=== PATIENT | male | born 1970 | race Caucasian/White ===

== ENCOUNTER 2019-10-28 14:46 | Emergency (ER) | payer OTHER, SELFPAY ==
[2019-10-28 14:47] VITALS: BP 133/85; PULSE 99; RESP 16; TEMP 36.9; O2SAT 97; BMI 31.2
--- NOTE | 2019-10-28 14:51 | EKG12_ITS ---
Test Reason : CP Blood Pressure : / mmHG Vent. Rate : 096 BPM Atrial Rate : 096 BPM P-R Int : 160 ms QRS Dur : 092 ms QT Int : 366 ms P-R-T Axes : 044 036 006 degrees QTc Int : 462 ms Normal sinus rhythm Normal ECG Confirmed by RACHAEL PADRON, BECKY ([id number]), editor city REYES NICHOLS ([id number]) on 10/29/2019 10:18:23 AM Referred By: TONY Confirmed By:ALDO CANO MD
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
[2019-10-28 15:06] LABS: Absolute Lymphocyte Count 1.94 X10^3/uL (0.83-4.51); Absolute Neutrophil Count 4.5 X10^3/uL (2.0-7.7); Basophil# 0.05 X10^3/uL; Basophil% 0.7 % (0-1); Eosinophil# 0.11 X10^3/uL; Eosinophils% 1.5 % (0-5); Hemoglobin 14.6 g/dL (13.0-16.5); Lymphocyte # 1.94 X10^3/ul (4.0); Lymphocyte % 27.2 % (19-41); Mean Corpuscular Hgb 30.2 pg (27.0-32.0); Mean Corpuscular Volume 88.8 fL (80-94); Mean Platelet Vol. 9.7 fl (6.2-12.0); Monocyte# 0.51 X10^3/uL; Monocyte% 7.1 % (0-10); NRBC Flagged by Analyzer 0 % (0-5); Neutrophil # 4.49 X10^3/uL (2.7-7.7); Neutrophil % 62.9 % (47-70); Platelet Count 254 K/mm3 (150-450); RBC Distribution Width CV 12.2 % (11.6-14.6); RBC Distribution Width SD 39.4 fl (35.1-43.9); Red Blood Count 4.84 M/mm3 (4.6-6.2); White Blood Count 7.1 K/mm3 (4.4-11.0)
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
[2019-10-28 15:27] LABS: Anion Gap 7 (5-15); BUN 24 mg/dL (7-18); BUN/Creat Ratio 16.7 RATIO (10-20); Calcium,Total 9.1 mg/dL (8.5-10.1); Chloride 109 mmol/L (98-107); Creatinine, Serum 1.44 mg/dL (0.70-1.30); EST Glomerular Filtration Rate 55 mL/min (>60); Est Glom Filt Rate - Afr Amer 67 mL/min (>60); Estimated Creatinine Clearance 63.37 ml/min; Glucose 187 mg/dL (74-106); Potassium 3.5 mmol/L (3.5-5.1); Sodium Level 140 mmol/L (136-145); Thyroid Stim Hormone (TSH) 2.17 uIU/mL (0.358-3.74)
--- NOTE | 2019-10-28 15:44 | DCINST.ED_ITS ---
ED Disposition - Plan for ED Patient: Disposition: Home or Assisted Living Instructions: Atrial Fibrillation Prescriptions: Metoprolol Succinate 25 mg PO DAILY #30 tab.er.24h Prescription Printed Referrals: Jonah Randle MD [STAFF PHYSICIAN] - As soon as possible Additional Instructions: Start the metoprolol 1 pill/day. Watch your blood pressure with this and your heart rate. Call and follow-up with a local employee relations assistant. Return if feeling worse.
[2019-10-28 15:55] VITALS: BP 118/67; PULSE 85; RESP 16; O2SAT 96
== END 2019-10-28 16:05 | disposition home or self-care (01) ==
PROVIDERS: Emergency Provider Emergency Medicine
DX: I48.91 Unspecified atrial fibrillation (principal)
CPT/HCPCS: 71045; 80048; 84443; 84484; 85025; 93005; 99285

== ENCOUNTER → 2019-11-25 08:02 | Outpatient (CLI) | payer OTHER, SELFPAY ==
[2019-11-17 15:14] VITALS: BMI 31.2
--- NOTE | 2019-11-25 08:05 | ECHOD_ITS ---
Reason For Study: PALPITATIONS Procedure This was a 2D Doppler, Color Flow transthoracic echocardiogram. Exam performed in department. Left Ventricle Normal LV size. The estimated ejection fraction is 65 %. No evidence for diastolic dysfunction. No regional wall motion abnormalities noted. Right Ventricle Normal RV size. Normal systolic function. Atria Normal left atrium. Normal right atrium. No doppler evidence for ASD. Mitral Valve There is no mitral valve stenosis. No mitral valve insufficiency. Tricuspid Valve There is no tricuspid stenosis. Trivial tricuspid valve insufficiency. Pulmonary artery systolic pressure is 30-35 mmHg. Aortic Valve Trisinus/trileaflet aortic valve. There is no aortic stenosis. No aortic valve insufficiency. Pulmonic Valve There is no pulmonic valvular stenosis. Trivial pulmonic valve insufficiency. Great Vessels Normal aortic root. Pericardium/Pleural No pericardial effusion. MMode/2D Measurements & Calculations LVIDd: 4.2 cm IVSd: 0.93 cm Ao root diam: 3.3 cm LVIDs: 3.0 cm LVPWd: 0.91 cm RVDd: 4.1 cm FS: 29.7 % LAV(MOD-bp): 57.4 ml LVAd ap4: 36.9 cm2 SV(MOD-sp4): 83.0 ml LAV(MOD-bp) Indexed: 27.6 ml/m2 EDV(MOD-sp4): 129.8 ml LAV(MOD-sp2): 58.0 ml EDV(sp4-el): 133.3 ml LAV(MOD-sp4): 54.6 ml LVAs ap4: 18.9 cm2 ESV(MOD-sp4): 46.8 ml ESV(sp4-el): 45.0 ml EF(MOD-sp4): 64.0 % EF(sp4-el): 66.2 % SV(sp4-el): 88.3 ml LA A4 area: 19.0 cm2 LA dimension(2D): 3.6 cm RA A4 area: 15.9 cm2 Time Measurements MV dec time: 0.20 sec Doppler Measurements & Calculations MV E max guido: 73.3 cm/sec Lat Peak E' Guido: 11.1 cm/sec Med Peak E' Guido: 10.2 cm/sec MV A max guido: 80.1 cm/sec E/E' lat: 6.6 E/E' med: 7.2 MV E/A: 0.92 Ao V2 max: 144.6 cm/sec LV V1 max: 137.8 cm/sec PA V2 max: 141.6 cm/sec Ao max P.4 mmHg LV V1 max P.6 mmHg PI end-d guido: 78.6 cm/sec TR max guido: 269.1 cm/sec TR max P.0 mmHg PI dec slope: 217.2 cm/sec2 Interpretation Summary No evidence for diastolic dysfunction. Trivial tricuspid valve insufficiency. Pulmonary artery systolic pressure is 30-35 mmHg. The estimated ejection fraction is 65 %. Ordering Physician: Jonah Randle Referring Physician: Jonah Randle Performed By: Della Lozada RDCS
== END ==
PROVIDERS: Referring Provider Specialist; Visit Provider Specialist
DX: R00.2 Palpitations (principal)
CPT/HCPCS: 93306

== ENCOUNTER 2024-01-06 07:36 | Observation (INO) | payer OTHER, SELFPAY ==
[2024-01-06] VITALS (14 sets, daily range): BP systolic 90–158; BP diastolic 65–127; PULSE 62–162; RESP 13–20; TEMP 35.6–36.8; O2SAT 95–100; BMI 28.7; BMI 28.0
--- NOTE | 2024-01-06 08:08 | EKG12_ITS ---
Test Reason : CP/A-FIB Blood Pressure : / mmHG Vent. Rate : 149 BPM Atrial Rate : 000 BPM P-R Int : 000 ms QRS Dur : 082 ms QT Int : 318 ms P-R-T Axes : 000 037 014 degrees QTc Int : 500 ms Critical Test Result: High HR Atrial fibrillation with rapid ventricular response Cannot rule out Inferior infarct , age undetermined Abnormal ECG When compared with ECG of 28-OCT-2019 14:51, Confirmed by ISATU PADRON, DUY ([id number]), editor book KAILEY BAZAN ([id number]) on 01/15/2024 9:21:15 AM Referred By: DEBBIE Confirmed By:DUY LUNSFORD MD
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
[2024-01-06] MEDS: dilTIAZem 25 MG/5 ML Vial 10 MG IV BOLUS (08:21)
--- NOTE | 2024-01-06 08:28 | NURSING ---
After cardizem given, pt becomes faint, ryan down, code called, pt unconcious w/ pulse, came back to conciousness in approx 30 sec or less.
[2024-01-06] MEDS: Ondansetron 4 MG/2 ML Vial IV (08:32)
[2024-01-06 08:42] LABS: Absolute Lymphocyte Count 1.87 X10^3/uL (0.83-4.51); Absolute Neutrophil Count 3.8 X10^3/uL (2.0-7.7); Basophil# 0.04 X10^3/uL; Basophil% 0.6 % (0-1); Eosinophil# 0.08 X10^3/uL; Eosinophils% 1.1 % (0-5); Hematocrit 46.3 % (40-54); Hemoglobin 15.7 g/dL (13.0-16.5); Lymphocyte # 1.87 X10^3/ul (0.83-4.51); Lymphocyte % 26.6 % (19-41); Mean Corp Hgb Conc 33.9 g/dL (32-36); Mean Corpuscular Hgb 30.4 pg (27.0-32.0); Mean Corpuscular Volume 89.7 fL (80-94); Mean Platelet Vol. 10.1 fl (6.2-12.0); Monocyte# 1.25 X10^3/uL; Monocyte% 17.8 % (0-10); NRBC Flagged by Analyzer 0 % (0-5); Neutrophil # 3.76 X10^3/uL (2.7-7.7); Neutrophil % 53.6 % (47-70); Platelet Count 279 K/mm3 (150-450); RBC Distribution Width CV 12.4 % (11.6-14.6); RBC Distribution Width SD 41.1 fl (35.1-43.9); Red Blood Count 5.16 M/mm3 (4.6-6.2)
--- NOTE | 2024-01-06 08:45 | RAD_ITS ---
INDICATION: chest pain EXAMINATION/TECHNIQUE: X-RAY - XR Chest 1 View COMPARISON: Prior study dated: 10/28/2019 FINDINGS: LINES/DEVICES: None. LUNGS: No consolidation, edema or effusion. No pneumothorax. MEDIASTINUM AND CARDIOVASCULAR STRUCTURES: Cardiac silhouette not enlarged. Central airways and mediastinal contour are unremarkable. BONES AND SOFT TISSUES: Unremarkable. RAD/Chest 1 View (Portable) IMPRESSION: No radiographic evidence of acute cardiopulmonary disease. Electronically Signed: Ross Velazquez MD at 9:09 EST ,
--- NOTE | 2024-01-06 08:46 | EKG12_ITS ---
Test Reason : Blood Pressure : / mmHG Vent. Rate : 065 BPM Atrial Rate : 065 BPM P-R Int : 170 ms QRS Dur : 088 ms QT Int : 408 ms P-R-T Axes : 051 056 031 degrees QTc Int : 424 ms Normal sinus rhythm Normal ECG When compared with ECG of 06-JAN-2024 07:57, MANUAL COMPARISON REQUIRED, DATA IS UNCONFIRMED Confirmed by Lester Yip ([id number]), editor in chief DEEP WEBB ([id number]) on 01/07/2024 1:33:36 PM Referred By: MEG Confirmed By:Lester Yip
[2024-01-06 09:02] LABS: Anion Gap 3 (5-15); BUN 19 mg/dL (7-18); BUN/Creat Ratio 17.8 RATIO (10-20); Calcium,Total 9.3 mg/dL (8.5-10.1); Chloride 105 mmol/L (98-107); Creatinine, Serum 1.07 mg/dL (0.70-1.30); EST Glomerular Filtration Rate 77 mL/min (>60); Est Glom Filt Rate - Afr Amer 93 mL/min (>60); Glucose 103 mg/dL (74-106); Magnesium 2.3 mg/dL (1.6-2.6); Potassium 3.8 mmol/L (3.5-5.1); Sodium Level 137 mmol/L (136-145); Thyroid Stim Hormone (TSH) 1.78 uIU/mL (0.358-3.74); Troponin-I HS (w/2H Reflex) 7 pg/mL (3.0-78.0)
--- NOTE | 2024-01-06 09:36 | CT_ITS ---
INDICATION: headache after syncope EXAMINATION: CT BRAIN - CT Head or Brain W/O Contrast Injection TECHNIQUE: Multiple axial images were obtained of the head without intravenous contrast. A radiation dose optimization technique was used for this scan. IV Contrast dosage and agent: None. RADIATION DOSAGE (If Supplied By Facility): CTDIvol = ( 44.99 ) mGy, DLP = ( 796.11 ) mGycm COMPARISON: No relevant prior comparison study available FINDINGS: BRAIN PARENCHYMA: No intra- or extra-axial hemorrhage. No evidence of acute infarct. No intracranial mass or mass effect. There is preservation of the conrad/white matter interface. Posterior fossa structures are unremarkable. CSF SPACES: Appropriate for age. No hydrocephalus. Basal cisterns are patent. CALVARIUM, SKULL BASE, PARANASAL SINUSES AND MASTOID AIR CELLS: Mild mucosal thickening of the sphenoid and right maxillary sinus. Partial occlusion of the right ostiomeatal complex. No discrete lytic or blastic abnormalities. ORBITS: Both globes, extraocular muscles, optic nerves and retrobulbar fat appear unremarkable. CT/Brain/Head without Contrast IMPRESSION: No acute intracranial process. Electronically Signed: Ross Velazquez MD at 10:22 EST ,
[2024-01-06] MEDS: Metoprolol Tartrate 25 MG Tablet PO ×2 (09:42→10:28)
[2024-01-06] MEDS: Metoclopramide 10 MG/2 ML Vial IV (09:52)
[2024-01-06 10:35] LABS: Reflex Troponin-HS? (from REC) Y
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
[2024-01-06 11:12] LABS: Troponin-I HS 6 pg/mL (3.0-78.0)
--- NOTE | 2024-01-06 11:45 | ECHOD_ITS ---
Reason For Study: Afib w/RVR Procedure This was a 2D Doppler, Color Flow transthoracic echocardiogram. Exam performed portable in patient room. Left Ventricle Normal LV size. The left ventricular ejection fraction is 65 %. Normal diastololic function. Right Ventricle Normal right ventricle. Atria The left and right atria are normal. Mitral Valve Mild (1+) mitral valve insufficiency. Tricuspid Valve Mild tricuspid valve insufficiency. Normal pulmonary artery pressure. Aortic Valve Trisinus/trileaflet aortic valve. Pulmonic Valve Mild (1+) pulmonic valve insufficiency. Great Vessels Normal sized aortic root. Pericardium/Pleural No pericardial effusion. MMode/2D Measurements & Calculations LVIDd: 4.5 cm IVSd: 1.1 cm Ao root diam: 3.2 cm LVIDs: 3.1 cm LVPWd: 0.99 cm LA dimension: 3.8 cm RVDd: 4.7 cm FS: 30.0 % LAV(MOD-bp): 58.9 ml LVAd ap4: 32.0 cm2 SV(MOD-sp4): 58.7 ml LAV(MOD-bp) Indexed: 27.6 ml/m2 LVLd ap4: 8.6 cm LAV(MOD-sp2): 57.6 ml EDV(MOD-sp4): 95.8 ml LAV(MOD-sp4): 56.4 ml EDV(sp4-el): 101.0 ml LVAs ap4: 17.0 cm2 LVLs ap4: 7.0 cm ESV(MOD-sp4): 37.1 ml ESV(sp4-el): 34.8 ml EF(MOD-sp4): 61.3 % EF(sp4-el): 65.5 % SV(sp4-el): 66.2 ml LA A4 area: 20.6 cm2 RA A4 area: 20.6 cm2 TAPSE: 2.3 cm Time Measurements MV dec time: 0.24 sec Doppler Measurements & Calculations MV E max guido: 41.6 cm/sec Lat Peak E' Guido: 9.3 cm/sec Med Peak E' Guido: 7.7 cm/sec MV A max guido: 49.0 cm/sec E/E' lat: 4.5 E/E' med: 5.4 MV E/A: 0.85 MV V2 max: 76.5 cm/sec MV P1/2t max guido: 70.1 cm/sec Ao V2 max: 110.0 cm/sec MV max P.3 mmHg MV P1/2t: 102.9 msec Ao max P.8 mmHg MV V2 mean: 38.7 cm/sec MV dec slope: 199.7 cm/sec2 Ao V2 mean: 80.2 cm/sec MV mean P.73 mmHg Ao mean P.9 mmHg MV V2 VTI: 24.2 cm MVA(P1/2t): 2.1 cm2 Ao V2 VTI: 24.4 cm AV (velocity ratio): 0.88 LV V1 max: 102.6 cm/sec MR max guido: 449.9 cm/sec PA V2 max: 83.2 cm/sec LV V1 max P.2 mmHg MR max P.0 mmHg LV V1 mean P.4 mmHg LV V1 mean: 71.6 cm/sec LV V1 VTI: 21.4 cm TR max guido: 229.4 cm/sec TR max P.1 mmHg ECHO/Echo Complete Interpretation Summary The left ventricular ejection fraction is 65 %. Mild (1+) mitral valve insufficiency. Mild tricuspid valve insufficiency. Mild (1+) pulmonic valve insufficiency. Ordering Physician: Lawrence Bright Performed By: Brett Jacobs RCS
[2024-01-06] MEDS: Metoprolol Tartrate 50 MG Tablet PO (12:05)
--- NOTE | 2024-01-06 13:07 | EKG12_ITS ---
Test Reason : UNRESPONSIVE EPISODE Blood Pressure : / mmHG Vent. Rate : 097 BPM Atrial Rate : 000 BPM P-R Int : 000 ms QRS Dur : 086 ms QT Int : 356 ms P-R-T Axes : 000 055 044 degrees QTc Int : 452 ms Atrial fibrillation Nonspecific ST abnormality Abnormal ECG No previous ECGs available Confirmed by ISATU PADRON, DUY ([id number]), features editor KAILEY BAZAN ([id number]) on 01/15/2024 9:21:32 AM Referred By: DEBBIE Confirmed By:DUY LUNSFORD MD
--- NOTE | 2024-01-06 15:21 | NURSING ---
Echo in progress
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
[2024-01-06] MEDS: APIXABAN 5 MG TABLET PO (17:47)
[2024-01-07 04:00] VITALS: BP 104/73; PULSE 71; RESP 18; TEMP 36.6; O2SAT 98
[2024-01-07 08:07] LABS: Hematocrit 42.9 % (40-54); Hemoglobin 14.5 g/dL (13.0-16.5); Mean Corp Hgb Conc 33.8 g/dL (32-36); Mean Corpuscular Hgb 30.3 pg (27.0-32.0); Mean Corpuscular Volume 89.6 fL (80-94); Mean Platelet Vol. 10.1 fl (6.2-12.0); Platelet Count 263 K/mm3 (150-450); RBC Distribution Width CV 12.7 % (11.6-14.6); RBC Distribution Width SD 42.2 fl (35.1-43.9); Red Blood Count 4.79 M/mm3 (4.6-6.2); White Blood Count 6.2 K/mm3 (4.4-11.0)
[2024-01-07 08:29] VITALS: BP 115/66; PULSE 68; RESP 18; TEMP 36.6; O2SAT 98
[2024-01-07 08:31] VITALS: PULSE 68
[2024-01-07] MEDS: Metoprolol Tartrate 50 MG Tablet PO (08:31)
[2024-01-07] MEDS: APIXABAN 5 MG TABLET PO (08:32)
[2024-01-07 08:35] LABS: Anion Gap 5 (5-15); BUN 22 mg/dL (7-18); BUN/Creat Ratio 22.1 RATIO (10-20); Calcium,Total 8.8 mg/dL (8.5-10.1); Chloride 107 mmol/L (98-107); EST Glomerular Filtration Rate 83 mL/min (>60); Est Glom Filt Rate - Afr Amer 100 mL/min (>60); Estimated Creatinine Clearance 97.48 ml/min; Glucose 97 mg/dL (74-106); Sodium Level 138 mmol/L (136-145)
--- NOTE | 2024-01-07 11:39 | PN.CARD_ITS ---
Subjective Subjective Patient reports he been up in the halls with regular activity levels without any lightheaded or dizzy spells. He reports only time he gets lightheaded is when he knows he is in atrial fibrillation. He has had no recurrence. Telemetry shows sinus rhythm at 80 bpm. His echocardiogram revealed LV ejection fraction of 65% mild 1+ mitral regurgitation otherwise was unremarkable.. Objective Data Vital Signs: Vital Signs Temp Pulse Resp BP Pulse Ox O2 Del Method O2 Flow Rate 97.9 F 68 18 115/66 98 Room Air 2 01/07/24 08:29 01/07/24 08:31 01/07/24 08:29 01/07/24 08:29 01/07/24 08:29 01/07/24 08:53 01/06/24 12:01 Oxygen Flow Rate (L/min) 2 Oxygen Delivery Method Room Air Weight: 200 lb 12.8 oz Body Mass Index (BMI) 28.0 Intake & Output: Intake and Output for Last 24 Hours 01/05/24 01/06/24 01/07/24 23:59 23:59 23:59 Intake Total 950 / 950 Balance 950 / 950 Lab / Micro Data Attestation: I reviewed the patient's lab results. 01/07/24 07:20 01/07/24 07:20 Labs: Laboratory Results - last 24 hr 01/06/24 10:45: TSH 2.00 01/07/24 07:20: WBC 6.2, RBC 4.79, Hgb 14.5, Hct 42.9, MCV 89.6, MCH 30.3, MCHC 33.8, RDW Std Deviation 42.2, RDW Coeff of Sammie 12.7, Plt Count 263, MPV 10.1, S odium 138, Potassium 4.0, Chloride 107, Carbon Dioxide 26.0, Anion Gap 5, BUN 22 H, Creatinine 1.00, Estim Creat Clear Calc 97.48, Est GFR (MDRD) Af Amer 100, Est GFR (MDRD) Non-Af 83, BUN/Creatinine Ratio 22.1 H, Glucose 97, Calcium 8.8 Rhythm Strip Rhythm Strip: Sinus Rhythm Rate: 80 Cardiology Labs/Tests 01/07/24 07:20: WBC 6.2, RBC 4.79, Hgb 14.5, Hct 42.9, MCV 89.6, MCH 30.3, MCHC 33.8, Plt Count 263, MPV 10.1, Sodium 138, Potassium 4.0, Chloride 107, Carbon Dioxide 26.0, Anion Gap 5, BUN 22 H, Creatinine 1.00, Est GFR (MDRD) Af Amer 100, Est GFR (MDRD) Non-Af 83, BUN/Creatinine Ratio 22.1 H, Glucose 97, Calcium 8.8 Rhythm: EKG: ECHO: Stress Test: Cardiac Cath: PCI: CT Surgery: Holter monitor: EPS: PPM: CXR: Chest CT Scan: Radiography Diagnostic Testing: Radiology Impression Echocardiogram 01/06/24 11:45 Interpretation Summary The left ventricular ejection fraction is 65 %. Mild (1+) mitral valve insufficiency. Mild tricuspid valve insufficiency. Mild (1+) pulmonic valve insufficiency. Ordering Physician: Lawrence Bright Performed By: Brett Jacobs RCS Physical Exam Const oriented x3 HEENT normocephalic Eyes EOMs intact bilaterally Neck no JVD Chest inspection of chest normal Resp normal respiratory effort and clear to auscultation bilaterally Cardio regular rate, regular rhythm, S1 normal heart sound, S2 normal heart sound, no murmurs, no rub and no gallops GI normal to inspection, nondistended, normoactive bowel sounds Extremity no pedal edema Skin no rashes or lesions noted Neuro Neuro Narrative: Alert and oriented x 3 Psych mental status grossly normal Assessment & Plan Assessment/Plan (1) Atrial fibrillation with RVR: PLAN: The patient appears to have lone atrial fibrillation. There is no obvious triggers although it does appear that when he overexerts himself he is prone to develop of short runs of the atrial fibs. He is tolerating the Lopressor 50 mg twice daily. We will continue this in his home environment along with Eliquis 5 mg twice daily. The patient should be able to follow-up with us in the office in 2 to 3 weeks we will review his echocardiogram at that time as I did not have it when I was making rounds this morning. PLAN: Plan The patient can be discharged home from a cardiovascular standpoint. She be maintained on Lopressor 50 mg twice daily and Eliquis 5 mg twice daily. Patient should call our office for an appointment in 2 to 3 weeks. At that time we will review his echo. Charges/Coding Visit Charges Inpatient E&M: 17546 Subs Hosp L2
--- NOTE | 2024-01-07 13:16 | DCINST_ITS ---
Discharge Instructions Diet Discharge Diet: No restrictions Activity Discharge Activity: Return to Normal Activity Weight Bearing Status: Full weight bearing Follow Up Care Test Results: Test results from this visit will be discussed in further detail at your follow- up appointment, if applicable. Discharge Plan Admission Admit Date/Time: 01/06/24 10:51 Primary Reason for Your Visit: heart palpitations Attending Provider: Lawrence Bright Primary Care Provider: Care Physician,No Primary Consulting Providers: Lester Yip Instructions Additional Instructions / Restrictions: Please start the Eliquis and metoprolol (beta-montserrat) as noted below. Follow- up with the cardiology office as scheduled by them. Discharge Orders/Prescriptions Prescriptions: New metoprolol tartrate 50 mg Tablet 50 mg PO BID 30 Days Qty: 60 0RF Eliquis 5 mg Tablet 5 mg PO BID 30 Days Qty: 60 0RF Referrals / Follow Up: Care Physician,No Primary [Primary Care Provider] - Disposition Disposition (needs filled in before D/C Order can be placed): Home, Self Care
--- NOTE | 2024-01-07 13:18 | DS.PCM_ITS ---
Providers Date of Admission: 01/06/24 Date of Discharge: 01/07/24 Primary Care Physician: Lauren Primary Care Phys Consultations 01/06/24 11:45 Consult: Cardiology Routine Consulting Provider: Lester Yip Reason for Consult: Afib with RVR EMERGENT Consult: No MD Notified: Yes Date Notified: 01/06/24 Time Notified: 11:53 Method of Notification: Text Reason For Visit: AFIB WITH RVR Diagnosis Discharge Diagnosis (1) Atrial fibrillation with RVR: Status: Acute Code(s): I48.91 - Unspecified atrial fibrillation Medications at Discharge Home Medications apixaban 5 mg tablet (Eliquis) 5 mg PO BID 30 days #60 tabs 01/07/24 metoprolol tartrate 50 mg tablet 50 mg PO BID 30 days #60 tabs 01/07/24 Hospital Course Operations None Procedures EKG, Transthoracic echo and - (Chest x-ray, CT head without contrast) Summary of Care Provided Minutes Spent on Discharge: 35 Hospital Course: Patient is a 53-year-old male who presented to [facility] ED on 01/06/2024 with intermittent palpitations. Short hospital course as noted below. Patient discharged home with no therapy needs in stable condition on 01/06. 1. New onset A-fib with RVR ? Confirmed on EKG in the ED. Heart rate consistently in the 120s to 150s on cardiac monitoring in the ED. ? TSH normal. Potassium 3.8, magnesium 2.3 on admit. Troponins negative. ? Initially given dose of IV Cardizem 10 mg, had syncopal episode as noted below. ? Cardiology evaluated in the ED, patient started on Lopressor 50 mg twice daily per their recommendation. Patient had conversion to normal sinus rhythm around 4 PM on day of admission, remained in normal sinus rhythm with heart rate in the 60s-70s for remainder of admission. ? TTE showed EF 65%, normal diastolic function, no significant valvular disease. ? Cardiology followed. Patient noted to have [id number] score of 0 but given his frequent episodes of going in and out of A-fib, he was initiated on Eliquis 5 mg twice daily. Stable for discharge home on Lopressor 50 mg twice daily and Eliquis on 01/06. Recommended outpatient follow-up in the cardiology office in 2 to 3 weeks. 2. Syncopal episode ? Occurred in the ED after IV Cardizem push was given for A-fib with RVR. CATHIE CERON was called but he did maintain a pulse throughout the episode per nursing staff. Was out for about 30 to 60 seconds before regaining consciousness. Patient remembered feeling lightheaded and dizzy shortly before the syncopal episode. ? Per cardiology, high suspicion that syncopal episode was due to cardiac arrhythmia secondary to IV Cardizem push. Recommended using beta-blockers for rate control therapy going forward. Total clinical time spent by myself addressing the patient's medical issues, reviewing all the data, and collaborating with patient's care team: 35 minutes. Physical Exam Const alert, oriented x3, no apparent distress, average body habitus, healthy appearing and well nourished Constitutional Narrative: Very pleasant middle-age male, sitting up comfortably in bed, conversing normally, no acute distress. General Appearance: cooperative, comfortable, well kempt and well developed HEENT normocephalic, head/scalp atraumatic, hearing grossly normal bilaterally, nasal mucous membranes and turbinates normal and moist oral mucous membranes Eyes PERRL, EOMs intact bilaterally and conjunctivae normal Neck full ROM Chest inspection of chest normal Resp normal respiratory effort, normal air movement, no use of accessory muscles and clear to auscultation bilaterally Cardio regular rate, regular rhythm, no murmurs and peripheral pulses 2+ throughout GI normal to inspection, nondistended, normoactive bowel sounds, soft to palpation, non-tender and non-distended Back/Spine normal ROM Extremity normal to inspection, full ROM and no pedal edema Skin no rashes or lesions noted Neuro moves all extremities and no focal motor deficits Speech: speech normal Psych mental status grossly normal Weight / BMI Weight Weight: 91.081 kg Body Mass Index (BMI) 28.0 ABG / Lab / Microbiology Data 01/07/24 07:20 01/07/24 07:20 Laboratory: Laboratory Results - last 24 hr 01/06/24 10:45: TSH 2.00 01/07/24 07:20: WBC 6.2, RBC 4.79, Hgb 14.5, Hct 42.9, MCV 89.6, MCH 30.3, MCHC 33.8, RDW Std Deviation 42.2, RDW Coeff of Sammie 12.7, Plt Count 263, MPV 10.1, Sodium 138, Potassium 4.0, Chloride 107, Carbon Dioxide 26.0, Anion Gap 5, BUN 22 H, Creatinine 1.00, Estim Creat Clear Calc 97.48, Est GFR (MDRD) Af Amer 100, Est GFR (MDRD) Non-Af 83, BUN/Creatinine Ratio 22.1 H, Glucose 97, Calcium 8.8 Radiography Diagnostic Testing: Radiology Impression Echocardiogram 01/06/24 11:45 Interpretation Summary The left ventricular ejection fraction is 65 %. Mild (1+) mitral valve insufficiency. Mild tricuspid valve insufficiency. Mild (1+) pulmonic valve insufficiency. Ordering Physician: Lawrence Bright Performed By: Brett Jacobs RCS D/C Instructions Discharge Diet: No restrictions Weight Bearing Status: Full weight bearing Meaningful Use Info Meaningful Use Diagnoses (Choose all that apply): None applicable Discharge Plan Admission Admit Date/Time: 01/06/24 10:51 Primary Reason for Your Visit: heart palpitations Attending Provider: Lawrence Bright Primary Care Provider: Care Physician,No Primary Consulting Providers: Lester Yip Instructions Additional Instructions / Restrictions: Please start the Eliquis and metoprolol (beta-montserrat) as noted below. Follow- up with the cardiology office as scheduled by them. Discharge Orders/Prescriptions Prescriptions: New metoprolol tartrate 50 mg Tablet 50 mg PO BID 30 Days Qty: 60 0RF Eliquis 5 mg Tablet 5 mg PO BID 30 Days Qty: 60 0RF Referrals / Follow Up: Care Physician,No Primary [Primary Care Provider] - Disposition Disposition (needs filled in before D/C Order can be placed): Home, Self Care Charges/Coding Visit Charges Inpatient E&M: 40948 Disch Hosp >30min
== END 2024-01-07 14:00 | disposition home or self-care (01) ==
LOC: ED 10:57 → PCU 11:07
PROVIDERS: Admitting Provider Hospitalist; Emergency Provider Emergency Medicine; Visit Provider Hospitalist
DX: I48.91 Unspecified atrial fibrillation (principal); I34.0 Nonrheumatic mitral (valve) insufficiency; R55 Syncope and collapse
CPT/HCPCS: 36415; 70450; 71045; 80048; 83735; 84443; 84484; 85025; 85027; 93005; 93306; 96374; 96375; 99221; 99285; J7030; Q9957; A4216; G0378; J2405

== ENCOUNTER 2024-01-26 15:59 | Emergency (ER) | payer OTHER, SELFPAY ==
[2024-01-26 16:00] VITALS: BP 123/81; PULSE 65; RESP 18; TEMP 36.6; O2SAT 93; BMI 30.2
--- NOTE | 2024-01-26 16:13 | EX.ED.UPPERE ---
HPI History of Present Illness Chief Complaint: Laceration Informant: patient and EMS Narrative Narrative: Patient had an injury to his right little finger. He is right-hand dominant. He states he was working on his own personal boat, there is a chowdhury over the drivers seat, he was bending down and had his hand on the edge and the chowdhury accidentally came shot, amputating the end of his right fifth finger tip. Last tetanus unknown. No other injuries. [facility] Medical History Atrial fibrillation with RVR Palpitations Home Medications apixaban 5 mg tablet (Eliquis) 5 mg PO BID #60 tabs 01/21/24 [Rx Last Taken Unknown] metoprolol tartrate 50 mg tablet 50 mg PO BID #90 tabs 01/21/24 [Rx Last Taken Unknown] cephalexin 500 mg capsule 500 mg PO TID #21 CAPSULES 01/26/24 [Rx Last Taken Unknown] Allergy/AdvReac Type Severity Reaction Status Date / Time No Known Allergies Allergy Verified 01/21/24 09:28 Social History Smoking Status: Never smoker alcohol intake: never substance use type: does not use caffeine: Yes Type: coffee Number of servings: 2 ROS ROS ED Constitutional Constitutional ED: Denies chills or fever(s) Musculoskeletal Musculoskeletal: Reports extremity pain; Denies neck pain Integumentary Reports wounds; Denies Abrasions or rash Neurologic Neurologic: Denies paresthesias or weakness EXAM Physical Exam Const Vital Signs: 01/26/24 16:00 Temperature 97.8 F Temperature Source Temporal Pulse Rate 65 Respiratory Rate 18 Blood Pressure 123/81 H Blood Pressure Mean 95 Pulse Ox 93 Oxygen Delivery Method Room Air Positive well nourished and well developed General Appearance ED: well developed and NAD Neck full ROM and supple Back/Spine normal ROM and normal to inspection Extremity Extremity Narrative: Right little fingertip is amputated fairly cleanly through the nailbed, without significant active bleeding, just minor venous oozing. The nail is completely avulsed from the root and missing. The distal piece that was amputated was not brought with him. It is fairly oblique through the nailbed, the proximal part of the nailbed is intact. What is visible distally is simply subcutaneous tissue, with gentle palpation I do not feel the tip of bone. FDS and FDP are intact, patient is able to flex at the DIPJ which is not involved in the injury. Neuro oriented x3, no focal motor deficits and no sensory deficits noted Sensorium / Orientation: alert Psych mental status grossly normal and thought process normal Skin Skin Narrative: Clean wound at amputation site, it is beyond the DIPJ of the right small finger. No other wounds or injuries. Rashes: no rashes MDM MDM MDM Narrative Medical decision making narrative: While gently palpating the fingertip while examining the patient, checking for the presence of bone beyond the soft tissue, the patient had some transient pain with this and this seemed to cause a vasovagal episode. He felt lightheaded, I immediately laid him back, he lost consciousness anyway, after I lied him back, and he had bradycardia down to the 40s, I was feeling his pulse and listening to his heart, he did not arrest, we got him on the monitor during this at which point his pulse was 50 sinus, and it came back up gradually to the 70s and 80s as he regained consciousness and then had some dry heaving as everything resolved. No ectopy, sinus rhythm on the monitor. He returned to baseline mental status. No other prodromal symptoms. Three-view x-ray of the right small finger was obtained and as interpreted by myself, there is bony involvement of the tip of the tuft, but the bone itself is not amputated and missing as the soft tissues are. Patient was soaked in sterile saline and chlorhexidine for a while, was given Tylenol for the pain declined other analgesics, and I discussed with Dr. Raymundo with hand surgery at [facility]. Their telehand service took pictures and I discussed with him in consultation over the phone, he agrees with this management of a bulky dressing with nonstick dressing bacitracin and prophylactic antibiotics and close outpatient follow-up. It is also noted that the patient is on Eliquis, his bleeding has not been out of control. Management Discussion w/another healthcare provider: Computer [employer] (Hand surgery Dr. Raymundo) Discharge Plan Triage Chief Complaint: Laceration ED Provider: Saw Thayer Dx/Rx/DC Orders Clinical Impression: Traumatic amputation of fingertip, Open fracture of distal phalanx of right little finger Instructions: Finger Tip Amputation Open Tx Prescriptions: New cephalexin [cephalexin] 500 mg capsule 500 mg PO TID Qty: 21 0RF No Action Eliquis 5 mg tablet 5 mg PO BID Qty: 60 6RF metoprolol tartrate 50 mg tablet 50 mg PO BID Qty: 90 6RF Rx Instructions: Take twice a day, may use an extra one for Afib. Primary Care Provider: Care Physician,No Primary Referrals: Dr. Dmitriy Raymundo [Other] - 1-2 Weeks Disposition Disposition: Home, Self Care
[2024-01-26] MEDS: Cephalexin 250 MG Capsule 500 MG PO (16:31)
[2024-01-26] MEDS: Diphth,Pertuss(Acell),Tet Vac 0.5 ML Vial IM (16:32)
--- NOTE | 2024-01-26 16:40 | RAD_ITS ---
STUDY: X-RAY - RIGHT HAND, ATTENTION FIFTH FINGER REASON FOR EXAM: Male, 53 years old. trauma/injury -- 5th TECHNIQUE: 3 view(s) of the finger were obtained. COMPARISON: None. FINDINGS: There has been amputation of the soft tissues of the fifth digit. There is associated complete displaced fracture of the tuft distal phalanx. Distal fracture fragment is cephalad and volar to the fracture site. No other abnormalities. Normal proximal phalanx. Normal middle phalanx. Normal proximal interphalangeal joint. Normal distal interphalangeal joint. RAD/Finger(s) Min 2 Views IMPRESSION: Displaced fracture of the fifth distal phalanx at the tuft . Amputation of the tip of the fifth finger. Electronically Signed: Rogerio Banegas MD at 16:58 EDT ,
[2024-01-26 18:00] VITALS: BP 116/67; PULSE 63; RESP 20; O2SAT 96
[2024-01-26] MEDS: Acetaminophen 500 MG Tablet 1000 MG PO (18:48)
[2024-01-26 18:49] VITALS: BP 114/86; PULSE 64; RESP 12; TEMP 36.8; O2SAT 98
== END 2024-01-26 19:27 | disposition home or self-care (01) ==
PROVIDERS: Emergency Provider Emergency Medicine; Visit Provider Emergency Medicine
DX: S68.126A Partial traumatic metacarpophalangeal amputation of right little finger, initial encounter (principal); I48.91 Unspecified atrial fibrillation; W26.8XXA Contact with other sharp object(s), not elsewhere classified, initial encounter; Y93.89 Activity, other specified; Y92.814 Boat as the place of occurrence of the external cause; Z79.01 Long term (current) use of anticoagulants
CPT/HCPCS: 73140; 90715; 99282

== ENCOUNTER → 2024-02-16 | Outpatient (CLI) | payer OTHER, SELFPAY ==
--- NOTE | 2024-02-16 16:13 | STRESSREP_ITS ---
Stress Test Report Exercise myocardial perfusion stress test. 53-year-old man with a history of atrial fibrillation Stress protocol: Resting EKG demonstrates normal sinus rhythm with a rate of 53 bpm resting blood pressure is 112/78 mmHg. The patient exercised according to the regular Ashu protocol for a total duration of 10 minutes and 31 seconds attaining a maximum heart rate of 121 bpm which was 72% of maximum predicted heart rate; the maximum workload was 13.4 metabolic equivalents. At rest there were no ST or T wave changes noted to suggest ischemia and at peak exercise upsloping ST changes only were noted which did not meet the criteria for ischemia. No clinical angina was noted the test was terminated due to the target heart rate being achi eved/fatigue. The peak blood pressure was 154/72 mmHg. Rate-pressure product was 15,000. Myocardial perfusion protocol. 11 mCi of technetium 99m sestamibi was injected at rest. The patient exercised according to regular Ashu protocol for total duration of 10 minutes and 31 seconds and at peak exercise 36 mCi of technetium 99m sestamibi was injected stress images were obtained stress and rest images were reconstructed in comparing the short axis vertical long and horizontal long axis. Gated images were also obtained. Perfusion SPECT analysis: Review of the stress images demonstrate normal uptake of tracer noted in all areas of the myocardium. The resting images similarly demonstrate normal uptake of tracer noted in all areas of the myocardium. No areas of reversibility are noted to suggest ischemia no previous infarct was noted. Gated SPECT analysis: The gated ejection fraction is 61%. Conclusion: Normal exercise myocardial perfusion stress test at a high workload Preserved ejection fraction.
== END | disposition home or self-care (01) ==
LOC: CVS 06:40
PROVIDERS: Referring Provider Physician Assistant Medical; Visit Provider Physician Assistant Medical
DX: I48.91 Unspecified atrial fibrillation (principal)
CPT/HCPCS: 78452; 93017; A9500; A4216